=== PATIENT | male | born 1955 | race African-American/Black ===

== ENCOUNTER → 2020-11-07 | Outpatient (CLI) | payer OTHER ==
[2020-11-07 13:38] LABS: Basophils # (auto) 0 10 ^3/uL (0-0.2); Basophils % (auto) 0.5 % (0.0-2.0); Eosinophils # (auto) 0 10 ^3/uL (0-0.8); Hematocrit 37.9 % (41.0-53.0); Hemoglobin 12.4 g/dL (13.5-17.5); Lymphocytes # (auto) 2.3 10 ^3/uL (0.4-5.4); Mean Corpuscular Hemoglobin 31.5 pg (28.0-32.0); Mean Corpuscular Hgb Conc. 32.6 g/dL (32.0-36.0); Mean Corpuscular Volume 96.7 fL (80.0-100.0); Monocytes # (auto) 0.6 10 ^3/uL (0-1.3); Monocytes % (auto) 8.3 % (0.0-12.0); Neutrophils # (auto) 4.4 10 ^3/uL (1.6-8.6); Neutrophils % (auto) 60.2 % (37.0-80.0); Nucleated Red Blood Cells % 0.1 %; Platelet Count (auto) 205 10^3/uL (140-450); Red Blood Cells 3.92 10^6/uL (4.5-5.90); Red Cell Distribution Width 13.2 % (11.8-14.3); White Blood Cell 7.3 10^3/uL (4.4-10.8)
[2020-11-07 13:58] LABS: Urine Bacteria NONE SEEN /hpf (None Seen); Urine Blood Negative /uL (Negative); Urine Hyaline Cast FEW /lpf (0 - 2); Urine Mucus FEW (None Seen); Urine Specific Gravity 1.018 (1.001-1.035); Urine WBC 3 /hpf (0 - 3)
[2020-11-07 14:17] LABS: INR 1.02 (0.9-1.15)
[2020-11-07 14:26] LABS: Albumin 3.8 g/dL (3.4-5.0); Calcium 9.3 mg/dL (8.5-10.1); Potassium 3.6 mmol/L (3.5-5.1); Uric Acid 4.9 mg/dL (3.5-7.2)
[2020-11-07 14:30] LABS: BUN/Creatinine Ratio 11.8; Bilirubin, Total 0.6 mg/dL (0.2-1.0); Total Protein 7.7 g/dL (6.4-8.2)
[2020-11-07 15:13] LABS: Free T4 (Free Thyroxine) 0.89 ng/dL (0.89-1.76); Prostate Specific Antigen 2.72 ng/mL (0.0-4.0)
== END | disposition home or self-care (01) ==
LOC: LAB 13:22
PROVIDERS: ATTEND Internal Medicine
DX: E11.9 Type 2 diabetes mellitus without complications (principal); I10 Essential (primary) hypertension; E78.5 Hyperlipidemia, unspecified
CPT/HCPCS: 36415; 80053; 80061; 81001; 82043; 82607; 83036; 84153; 84439; 84443; 84550; 85025; 85610; 85652

== ENCOUNTER → 2021-01-12 | Outpatient (CLI) | payer OTHER | END | disposition home or self-care (01) | LOC: XYW 11:04 | PROVIDERS: ATTEND Internal Medicine | DX: I10 Essential (primary) hypertension (principal) | CPT/HCPCS: 93306 ==

== ENCOUNTER 2021-02-23 18:02 | Inpatient (IN) | payer OTHER ==
[~2021-02-23] VITALS: Ht 30.5 cm; Wt 99.0 kg
[2021-02-23] MEDS ORDERED: ACETAMINOPHEN 500 MG TAB PO PRN (19:00)
[2021-02-23] MEDS ORDERED: DOCUSATE SOD 100 MG CAP PO PRN (19:00)
[2021-02-23] MEDS ORDERED: IPRATROPIUM BROM 0.5 MG/2.5ML INH SOL NEB PRN (19:00)
[2021-02-23] MEDS ORDERED: SODIUM CHLORIDE 0.9% 1,000 ML IV SCH (19:00)
[2021-02-23] MEDS ORDERED: ONDANSETRON HCL 4 MG/2 ML VIAL IV PRN (19:00)
[2021-02-23] MEDS ORDERED: ALBUTEROL SULF 2.5 MG/0.5ML(0.5%) NEB SOLN NEB PRN (19:00)
[2021-02-23] MEDS ORDERED: NITROGLYCERIN 0.4 MG SL TAB SL PRN (19:00)
[2021-02-23] MEDS ORDERED: HYDROcodone-ACET 5/325MG TAB PO PRN (19:00)
[2021-02-23 22:00] VITALS: BP 145/96
[2021-02-23] MEDS ORDERED: ALLO100T PO (23:33)
[2021-02-23] MEDS ORDERED: TRAZ100T3 PO (23:33)
[2021-02-23] MEDS ORDERED: ROSU20TA14 PO (23:33)
[2021-02-23] MEDS ORDERED: NIFE90TA49 PO (23:33)
[2021-02-23] MEDS ORDERED: CITA10TA70 PO (23:33)
[2021-02-23] MEDS ORDERED: LOSA-39 PO (23:33)
[2021-02-23] MEDS ORDERED: CICL8SOL3 TOP (23:33)
[2021-02-23] MEDS ORDERED: LORA-622 PO (23:33)
[2021-02-23 23:38] VITALS: BP 145/96
[2021-02-24] MEDS ORDERED: PNEUMOCOCCAL VACC POLYS 25 MCG/0.5 ML VIAL IM ONE (00:15)
[2021-02-24] MEDS: MORPHINE SULFATE INJECTION 2 MG/ML SYRG IV PRN ×2 (00:34→18:02)
[2021-02-24] MEDS ORDERED: dilTIAZem 25 MG/5 ML VIAL IV ONE (01:15)
[2021-02-24 05:00] VITALS: BP 146/98
[2021-02-24] MEDS ORDERED: MORPHINE SULFATE INJECTION 2 MG/ML SYRG IV PRN (05:30)
[2021-02-24] MEDS ORDERED: NITROGLYCERIN 0.4 MG SL TAB SL PRN (05:30)
[2021-02-24 05:35] LABS: Basophils # (auto) 0 10 ^3/uL (0-0.2); Basophils % (auto) 0.3 % (0.0-2.0); Eosinophils # (auto) 0 10 ^3/uL (0-0.8); Hematocrit 42.2 % (41.0-53.0); Hemoglobin 14.2 g/dL (13.5-17.5); Lymphocytes # (auto) 3.3 10 ^3/uL (0.4-5.4); Lymphocytes % (auto) 36.4 % (10.0-50.0); Mean Corpuscular Hemoglobin 31.5 pg (28.0-32.0); Mean Corpuscular Hgb Conc. 33.6 g/dL (32.0-36.0); Mean Corpuscular Volume 93.7 fL (80.0-100.0); Monocytes # (auto) 1.1 10 ^3/uL (0-1.3); Monocytes % (auto) 11.8 % (0.0-12.0); Neutrophils # (auto) 4.7 10 ^3/uL (1.6-8.6); Neutrophils % (auto) 51.5 % (37.0-80.0); Red Blood Cells 4.51 10^6/uL (4.5-5.90); Red Cell Distribution Width 12.6 % (11.8-14.3); White Blood Cell 9.1 10^3/uL (4.4-10.8)
[2021-02-24 05:45] LABS: INR 1.05 (0.9-1.15); Partial Thromboplastin Time 27.6 sec (23.6-33.0)
[2021-02-24 06:08] LABS: Albumin 3.8 g/dL (3.4-5.0); BUN/Creatinine Ratio 9.7; Calcium 9.1 mg/dL (8.5-10.1)
[2021-02-24 06:11] LABS: Bilirubin, Total 1.7 mg/dL (0.2-1.0)
[2021-02-24 09:00] VITALS: BP 157/96
[2021-02-24 09:39] LABS: Potassium 2.8 mmol/L (3.5-5.1)
[2021-02-24] MEDS ORDERED: POTASSIUM CHLORIDE 40 MEQ, LIDOCAINE 1% (LOCAL ANESTH.) 4 ML in SODIUM CHL 0.9% 250 ML IV ONE (10:15)
[2021-02-24] MEDS ORDERED: POTASSIUM CHL 20 Meq TABLET PO ONE (10:15)
[2021-02-24] MEDS: PANTOPRAZOLE 40 MG TAB PO SCH (10:16)
[2021-02-24] MEDS: dilTIAZem 120MG ER CAP PO SCH (10:18)
[2021-02-24 10:53] LABS: Urine Bacteria NONE SEEN /hpf (None Seen); Urine Blood TRACE /uL (Negative); Urine Mucus FEW (None Seen); Urine Specific Gravity 1.012 (1.001-1.035); Urine WBC 1 /hpf (0 - 3)
[2021-02-24 11:07] VITALS: BP 157/96
[2021-02-24 12:30] VITALS: BP 157/95
[2021-02-24 17:00] VITALS: BP 152/98
[2021-02-24] MEDS: ENOXAPARIN SOD 100 MG/1 ML SYRINGE SC SCH (20:30)
[2021-02-24] MEDS: ATORVASTATIN 20 MG TAB PO SCH (21:21)
[2021-02-24 22:00] VITALS: BP 162/89
[2021-02-24] MEDS: hydrALAZINE HCL 20 MG/ML VL IV PRN (23:58)
[2021-02-25] VITALS (7 sets, daily range): BP systolic 135–158; BP diastolic 78–103
[2021-02-25] MEDS: ENOXAPARIN SOD 100 MG/1 ML SYRINGE SC SCH ×2 (08:22→23:03)
[2021-02-25] MEDS: PANTOPRAZOLE 40 MG TAB PO SCH (09:03)
[2021-02-25] MEDS: dilTIAZem 120MG ER CAP PO SCH (09:05)
[2021-02-25 10:44] LABS: BUN/Creatinine Ratio 11.3; Calcium 9.6 mg/dL (8.5-10.1)
[2021-02-25] MEDS ORDERED: SPIRONOLACTONE 25 MG TAB PO ONE (11:30)
[2021-02-25] MEDS: MORPHINE SULFATE INJECTION 2 MG/ML SYRG IV PRN (18:50)
[2021-02-25] MEDS: hydrALAZINE HCL 20 MG/ML VL IV PRN (18:53)
[2021-02-25] MEDS: BACITRACIN TOP OINT 1 UD PKG TOP SCH (23:03)
[2021-02-25] MEDS: ATORVASTATIN 20 MG TAB PO SCH (23:03)
[2021-02-26] VITALS (7 sets, daily range): BP systolic 130–162; BP diastolic 78–82
[2021-02-26] MEDS: hydrALAZINE HCL 20 MG/ML VL IV PRN (05:26)
[2021-02-26 05:39] LABS: BUN/Creatinine Ratio 12.8; Basophils # (auto) 0 10 ^3/uL (0-0.2); Basophils % (auto) 0.4 % (0.0-2.0); Calcium 9.5 mg/dL (8.5-10.1); Eosinophils # (auto) 0 10 ^3/uL (0-0.8); Hematocrit 40.2 % (41.0-53.0); Hemoglobin 13.2 g/dL (13.5-17.5); Lymphocytes # (auto) 1.9 10 ^3/uL (0.4-5.4); Mean Corpuscular Hemoglobin 31.3 pg (28.0-32.0); Mean Corpuscular Hgb Conc. 32.9 g/dL (32.0-36.0); Mean Corpuscular Volume 95.2 fL (80.0-100.0); Monocytes # (auto) 0.7 10 ^3/uL (0-1.3); Monocytes % (auto) 10.3 % (0.0-12.0); Neutrophils # (auto) 4.4 10 ^3/uL (1.6-8.6); Neutrophils % (auto) 62.3 % (37.0-80.0); Red Blood Cells 4.22 10^6/uL (4.5-5.90); Red Cell Distribution Width 12.7 % (11.8-14.3)
[2021-02-26] MEDS: ENOXAPARIN SOD 100 MG/1 ML SYRINGE SC SCH ×2 (09:50→20:43)
[2021-02-26] MEDS: dilTIAZem 120MG ER CAP PO SCH (09:51)
[2021-02-26] MEDS: PANTOPRAZOLE 40 MG TAB PO SCH (09:52)
[2021-02-26] MEDS: BACITRACIN TOP OINT 1 UD PKG TOP SCH ×2 (09:58→21:58)
[2021-02-26] MEDS: POTASSIUM CHL 20MEQ/100ML 100 ML IV SCH ×2 (11:00→14:00)
[2021-02-26] MEDS ORDERED: NEOMYCIN-BACITRACIN-POLYM UNITDOSE PKG TOP OINT TOP ONE (14:15)
[2021-02-26] MEDS: MORPHINE SULFATE INJECTION 2 MG/ML SYRG IV PRN (14:37)
[2021-02-26] MEDS: POTASSIUM CHL 20 Meq TABLET PO SCH (21:58)
[2021-02-26] MEDS: ATORVASTATIN 20 MG TAB PO SCH (21:58)
[2021-02-27 05:00] VITALS: BP 148/88
[2021-02-27 06:42] LABS: Basophils # (auto) 0 10 ^3/uL (0-0.2); Basophils % (auto) 0.3 % (0.0-2.0); Eosinophils # (auto) 0 10 ^3/uL (0-0.8); Hematocrit 38.5 % (41.0-53.0); Hemoglobin 12.9 g/dL (13.5-17.5); Lymphocytes % (auto) 39.1 % (10.0-50.0); Mean Corpuscular Hemoglobin 32.2 pg (28.0-32.0); Mean Corpuscular Hgb Conc. 33.4 g/dL (32.0-36.0); Mean Corpuscular Volume 96.2 fL (80.0-100.0); Monocytes # (auto) 0.9 10 ^3/uL (0-1.3); Monocytes % (auto) 11.6 % (0.0-12.0); Neutrophils # (auto) 3.7 10 ^3/uL (1.6-8.6); Nucleated Red Blood Cells % 0.1 %; Red Cell Distribution Width 13.2 % (11.8-14.3); White Blood Cell 7.6 10^3/uL (4.4-10.8)
[2021-02-27 06:54] LABS: INR 1.05 (0.9-1.15); Partial Thromboplastin Time 29.8 sec (23.6-33.0)
[2021-02-27 06:57] LABS: Albumin 3.7 g/dL (3.4-5.0); Calcium 9.2 mg/dL (8.5-10.1); Magnesium 2.2 mg/dL (1.6-2.6); Potassium 3.3 mmol/L (3.5-5.1)
[2021-02-27 07:02] LABS: BUN/Creatinine Ratio 13.5; Phosphorus 3.2 mg/dL (2.5-4.90); Total Protein 7.6 g/dL (6.4-8.2)
[2021-02-27] MEDS ORDERED: ADENOSINE 83 MG in GIVE UN-DILUTED 0 ML IV STA (07:17)
[2021-02-27] MEDS: POTASSIUM CHL 20 Meq TABLET PO SCH (08:44)
[2021-02-27] MEDS: ENOXAPARIN SOD 100 MG/1 ML SYRINGE SC SCH (08:44)
[2021-02-27] MEDS: PANTOPRAZOLE 40 MG TAB PO SCH (08:45)
[2021-02-27] MEDS: dilTIAZem 120MG ER CAP PO SCH (08:45)
[2021-02-27 08:58] VITALS: BP 143/75
[2021-02-27 09:00] VITALS: BP 139/75
[2021-02-27] MEDS ORDERED: NEOMYCIN-BACITRACIN-POLYM UNITDOSE PKG TOP OINT TOP SCH (10:00)
[2021-02-27 13:00] VITALS: BP 137/66
[2021-02-27 13:40] VITALS: BP 147/84
[2021-02-27] MEDS: BACITRACIN TOP OINT 1 UD PKG TOP SCH (16:02)
== END 2021-02-27 16:16 | disposition home or self-care (01) | DRG 309 ==
LOC: CENTRAL 23:00
PROVIDERS: ADMIT Nurse Practitioner Acute Care; ATTEND Internal Medicine
DX: I48.0 Paroxysmal atrial fibrillation (principal); D68.69 Other thrombophilia; R55 Syncope and collapse; I10 Essential (primary) hypertension; E66.01 Morbid (severe) obesity due to excess calories; E78.5 Hyperlipidemia, unspecified; E11.9 Type 2 diabetes mellitus without complications; E87.6 Hypokalemia; M54.2 Cervicalgia; S00.83XA Contusion of other part of head, initial encounter; W18.39XA Other fall on same level, initial encounter; M10.9 Gout, unspecified; Z79.01 Long term (current) use of anticoagulants; Z80.0 Family history of malignant neoplasm of digestive organs; Z80.3 Family history of malignant neoplasm of breast; Z68.25 Body mass index [BMI] 25.0-25.9, adult; Z88.6 Allergy status to analgesic agent; Z82.49 Family history of ischemic heart disease and other diseases of the circulatory system; Y93.89 Activity, other specified; Y92.89 Other specified places as the place of occurrence of the external cause; Y99.8 Other external cause status
CPT/HCPCS: 36415; 36600; 71045; 72040; 73110; 78452; 80048; 80053; 81001; 82805; 83735; 84100; 85025; 85610; 85730; 87040; 87081; 87086; 93005; 93017; 93886; G0378; J0153; J2001; J2405; J3480

== ENCOUNTER → 2021-03-10 | Outpatient (CLI) | payer OTHER ==
[~2021-03-10] MED LIST: ALLO100T PO; CICL8SOL3 TOP; CITA10TA70 PO; LORA-622 PO; LOSA-39 PO; NIFE90TA49 PO; ROSU20TA14 PO; TRAZ100T3 PO
[2021-03-10 11:11] LABS: Urine Bacteria NONE SEEN /hpf (None Seen); Urine Blood TRACE /uL (Negative); Urine WBC 2 /hpf (0 - 3)
== END | disposition home or self-care (01) ==
LOC: LAB 10:50
PROVIDERS: ATTEND Internal Medicine
DX: I10 Essential (primary) hypertension (principal)
CPT/HCPCS: 81001

== ENCOUNTER 2022-03-17 11:29 | Emergency (ER) | payer OTHER ==
[~2022-03-17] VITALS: Ht 180.3 cm; Wt 100.0 kg
[2022-03-17 12:09] LABS: Basophils # (auto) 0 10 ^3/uL (0-0.2); Basophils % (auto) 0.3 % (0.0-2.0); Eosinophils # (auto) 0 10 ^3/uL (0-0.8); Hematocrit 39.8 % (41.0-53.0); Hemoglobin 12.7 g/dL (13.5-17.5); Lymphocytes # (auto) 1.4 10 ^3/uL (0.4-5.4); Lymphocytes % (auto) 17.8 % (10.0-50.0); Mean Corpuscular Hemoglobin 30.7 pg (28.0-32.0); Monocytes # (auto) 0.7 10 ^3/uL (0-1.3); Monocytes % (auto) 8.9 % (0.0-12.0); Neutrophils # (auto) 5.8 10 ^3/uL (1.6-8.6); Red Blood Cells 4.14 10^6/uL (4.5-5.90); Red Cell Distribution Width 12.9 % (11.8-14.3)
[2022-03-17 12:29] LABS: Calcium 8.7 mg/dL (8.5-10.1); Potassium 3.8 mmol/L (3.5-5.1)
[2022-03-17 12:31] LABS: BUN/Creatinine Ratio 9.2
[2022-03-17 12:34] LABS: Bilirubin, Total 1.1 mg/dL (0.2-1.0); Total Protein 7.5 g/dL (6.4-8.2)
[2022-03-17] MEDS ORDERED: IBU600T PO (14:46)
[2022-03-17 14:55] VITALS: BP 155/82
== END 2022-03-17 14:54 | disposition home or self-care (01) ==
LOC: EDBD 11:29 → ER 11:29
DX: S32.008A Other fracture of unspecified lumbar vertebra, initial encounter for closed fracture (principal); S33.5XXA Sprain of ligaments of lumbar spine, initial encounter; Z88.6 Allergy status to analgesic agent; I10 Essential (primary) hypertension; W19.XXXA Unspecified fall, initial encounter; Y93.89 Activity, other specified; Y92.89 Other specified places as the place of occurrence of the external cause; Y99.8 Other external cause status
CPT/HCPCS: 36415; 72131; 72192; 80053; 84484; 85025

== ENCOUNTER → 2024-05-12 | Outpatient (CLI) | payer OTHER ==
[~2024-05-12] MED LIST changes: +CICL8SOL21 TOP; -CICL8SOL3 TOP; +CITA10TA5 PO; -CITA10TA70 PO; +IBU600T PO; -LOSA-39 PO; +LOSA-535 PO; -NIFE90TA49 PO; +NIFE90TA75 PO; +TRAZ-228 PO; -TRAZ100T3 PO
[2024-05-12 14:53] LABS: Basophils # (auto) 0 10 ^3/uL (0-0.2); Basophils % (auto) 0.4 % (0.0-2.0); Eosinophils # (auto) 0 10 ^3/uL (0-0.8); Eosinophils % (auto) 0.1 % (0.0-7.0); Hematocrit 38.3 % (41.0-53.0); Hemoglobin 12.6 g/dL (13.5-17.5); Lymphocytes # (auto) 2.6 10 ^3/uL (0.4-5.4); Lymphocytes % (auto) 38.5 % (10.0-50.0); Mean Corpuscular Hemoglobin 31.6 pg (28.0-32.0); Mean Corpuscular Hgb Conc. 32.9 g/dL (32.0-36.0); Mean Corpuscular Volume 96.3 fL (80.0-100.0); Monocytes # (auto) 0.7 10 ^3/uL (0-1.3); Monocytes % (auto) 9.8 % (0.0-12.0); Neutrophils # (auto) 3.4 10 ^3/uL (1.6-8.6); Neutrophils % (auto) 51.2 % (37.0-80.0); Nucleated Red Blood Cells % 0.1 %; Platelet Count (auto) 193 10^3/uL (140-450); Red Blood Cells 3.98 10^6/uL (4.5-5.90); Red Cell Distribution Width 12.9 % (11.8-14.3); White Blood Cell 6.6 10^3/uL (4.4-10.8)
[2024-05-12 15:34] LABS: Alanine Aminotransferase 35 U/L (7-40); Anion Gap 9 (5-15); Aspartate Aminotransferase 28 U/L (13-40); BUN/Creatinine Ratio 12.8 (10.0-20.0); Blood Urea Nitrogen 16 mg/dL (9-23); Calcium 10.3 mg/dL (8.7-10.4); Carbon Dioxide 28 mmol/L (20-31); Chloride 106 mmol/L (98-107); Glucose 97 mg/dL (74-106); LDL Cholesterol 41 mg/dL (< 100); Potassium 3.8 mmol/L (3.5-5.1); Sodium 143 mmol/L (136-145); Triglycerides 54 mg/dL (< 150)
[2024-05-12 15:35] LABS: Albumin 4.8 g/dL (3.2-4.8); Bilirubin, Total 0.7 mg/dL (0.2-1.0); Cholesterol 161 mg/dL (< 200); Total Protein 7.5 g/dL (5.7-8.2)
[2024-05-12 15:36] LABS: Alkaline Phosphatase 35 U/L (46-116); HDL Cholesterol 99 mg/dL (40-59)
[2024-05-12 15:38] LABS: Free T3 2.9 pg/mL (2.3-4.2)
[2024-05-12 15:39] LABS: Prostate Specific Antigen 5.28 ng/mL (0.0-4.0)
[2024-05-13 08:06] LABS: Estradiol 10.6 pg/mL (7.6-42.6); PSA Free 1.93 ng/mL; Prostate Specific Antigen 6.3 ng/mL (0.0-4.0); Testosterone 310 ng/dL (264-916); Thyroid Peroxidase (TPO) Ab <9 IU/mL (0-34); Thyroxine (T4) 8.7 ug/dL (4.5-12.0)
== END | disposition home or self-care (01) ==
LOC: LAB 14:27
PROVIDERS: ATTEND Urology
DX: Z13.220 Encounter for screening for lipoid disorders (principal); E07.89 Other specified disorders of thyroid; E34.9 Endocrine disorder, unspecified; E29.1 Testicular hypofunction; E53.9 Vitamin B deficiency, unspecified; E55.9 Vitamin D deficiency, unspecified
CPT/HCPCS: 36415; 80053; 80061; 82306; 82607; 82670; 84153; 84154; 84402; 84403; 84436; 84443; 84481; 85025; 86376

== ENCOUNTER → 2024-10-02 | Outpatient (CLI) | payer OTHER ==
[2024-10-02 13:44] LABS: Basophils # (auto) 0 10 ^3/uL (0-0.2); Basophils % (auto) 0.3 % (0.0-2.0); Eosinophils # (auto) 0 10 ^3/uL (0-0.8); Hematocrit 37.2 % (41.0-53.0); Hemoglobin 12.2 g/dL (13.5-17.5); Lymphocytes # (auto) 2.3 10 ^3/uL (0.4-5.4); Lymphocytes % (auto) 35.8 % (10.0-50.0); Mean Corpuscular Hemoglobin 31.1 pg (28.0-32.0); Mean Corpuscular Hgb Conc. 32.9 g/dL (32.0-36.0); Mean Corpuscular Volume 94.5 fL (80.0-100.0); Monocytes # (auto) 0.6 10 ^3/uL (0-1.3); Neutrophils # (auto) 3.4 10 ^3/uL (1.6-8.6); Neutrophils % (auto) 53.9 % (37.0-80.0); Nucleated Red Blood Cells % 0.1 %; Platelet Count (auto) 200 10^3/uL (140-450); Red Blood Cells 3.93 10^6/uL (4.5-5.90); Red Cell Distribution Width 13.3 % (11.8-14.3); White Blood Cell 6.3 10^3/uL (4.4-10.8)
[2024-10-02 14:27] LABS: Alanine Aminotransferase 26 U/L (7-40); Albumin 4.7 g/dL (3.2-4.8); Alkaline Phosphatase 33 U/L (46-116); Anion Gap 7 (5-15); Aspartate Aminotransferase 22 U/L (13-40); BUN/Creatinine Ratio 14.2 (10.0-20.0); Bilirubin, Total 0.7 mg/dL (0.2-1.0); Blood Urea Nitrogen 18 mg/dL (9-23); Carbon Dioxide 29 mmol/L (20-31); Chloride 110 mmol/L (98-107); Glucose 103 mg/dL (74-106); Potassium 4.2 mmol/L (3.5-5.1); Sodium 146 mmol/L (136-145); Total Protein 7.3 g/dL (5.7-8.2)
[2024-10-02 14:30] LABS: Erythrocyte Sedimentation Rate 10 mm/hr (0-20)
== END | disposition home or self-care (01) ==
LOC: LAB 13:26
PROVIDERS: ATTEND Internal Medicine
DX: I10 Essential (primary) hypertension (principal); I48.0 Paroxysmal atrial fibrillation; Z87.39 Personal history of other diseases of the musculoskeletal system and connective tissue
CPT/HCPCS: 36415; 80053; 84550; 85025; 85652

== ENCOUNTER 2025-03-19 08:21 | Day surgery (SDC) | payer OTHER ==
[2025-03-11 14:03] LABS: Urine Protein, UAD Negative (Negative)
[2025-03-11 14:09] LABS: Hematocrit 40.0 % (41.0-53.0); Hemoglobin 13.1 g/dL (13.5-17.5); Mean Corpuscular Hemoglobin 31.6 pg (28.0-32.0); Mean Corpuscular Volume 96.2 fL (80.0-100.0); Nucleated Red Blood Cells % 0.1 %
[2025-03-11 14:23] LABS: INR 1.07 (0.9-1.15); Partial Thromboplastin Time 27.1 SEC (24.5-34.5); Prothrombin Time 11.3 sec (9.3-11.8)
[2025-03-11 14:42] LABS: Alanine Aminotransferase 29 U/L (7-40); Albumin 4.7 g/dL (3.2-4.8); Anion Gap 11 (5-15); BUN/Creatinine Ratio 7.9 (10.0-20.0); Blood Urea Nitrogen 11 mg/dL (9-23); Calcium 9.5 mg/dL (8.7-10.4); Carbon Dioxide 29 mmol/L (20-31); Chloride 105 mmol/L (98-107); Glucose 95 mg/dL (74-106); Potassium 3.9 mmol/L (3.5-5.1); Total Protein 7.6 g/dL (5.7-8.2)
[2025-03-11 14:43] LABS: Bilirubin, Total 1.0 mg/dL (0.2-1.0)
[2025-03-11 15:08] LABS: Alkaline Phosphatase 33 U/L (46-116); Sodium 145 mmol/L (136-145)
[~2025-03-19] VITALS: Ht 177.8 cm; Wt 96.2 kg
[~2025-03-19 08:21] MED LIST changes: -ALLO100T PO; +AMIO200T13 PO; +AML5T PO; +APIX5TAB PO; -CICL8SOL21 TOP; -CITA10TA5 PO; -IBU600T PO; -LORA-622 PO; +METO25TA93 PO; -NIFE90TA75 PO; +TAMS-35 PO; -TRAZ-228 PO
[2025-03-19] MEDS ORDERED: KETAMINE 50mg/ML 1ml syringe IM ONE (08:22)
[2025-03-19] MEDS ORDERED: PROPOFOL 10 MG/ML 20 ML IV ONE ×2 (08:40→09:34)
[2025-03-19] MEDS ORDERED: MIDAZOLAM HCL 2MG/2ML 2ml VIAL (1mg/ml) ONE (08:40)
[2025-03-19 09:38] VITALS: PULSE 79; RESP 30; TEMP 97.4; O2SAT 96
[2025-03-19 09:43] VITALS: O2SAT 96
--- NOTE | 2025-03-19 09:45 | DVHOP2 ---
Operative Report DATE OF OPERATION: 03/19/25 PROCEDURE: Colonoscopy with cold biopsy polypectomy. PREOPERATIVE INDICATION: The patient is a 69 -year-old male undergoing colonoscopy for surveillance with personal history of colon polyps POSTOPERATIVE DIAGNOSES: 1. 2-3 mm benign-appearing ascending colon polyp was seen and removed completely via cold biopsy forceps in a piecemeal fashion 2. Trace internal hemorrhoids otherwise completely normal colonoscopy examination up to the cecum PROCEDURE PERFORMED BY: Daisy Valentine M.D. SCOPE: Olympus videocolonoscope. ASA CLASS: 3 PREOPERATIVE MEDICATIONS: Dr. Dominguez Fisher PROCEDURE IN DETAIL: After obtaining an informed consent, the patient was placed on left lateral decubitus position. He was then sedated with the above medications. A rectal examination was performed that was normal. The colonoscope was then passed through the anus into the rectosigmoid and through the descending, transverse, and ascending colon up to the cecum with visualization of the appendiceal orifice, base of the cecum and the ileocecal valve. The colonoscope was then withdrawn. No masses or colitis were seen. There was no clear-cut diverticular disease. Patient had a 2-3 mm benign-appearing ascending colon polyp that was removed completely in a piecemeal fashion No other polyps or masses were seen. Patient had trace internal hemorrhoids on retroflexion and straight on view The patient tolerated the procedure well without difficulty. WITHDRAWAL TIME: 9 minutes QUALITY OF THE PREP: Morral Bowel Prep score: 9. COMPLICATIONS : None SPECIMENS: Ascending colon polyp DISPOSITION: Stable D/C to home PLAN: 1. Repeat colonoscopy base on biopsy result likely in 3-5 years 2. Resume GI soft diet advance as tolerated 3. Avoid aspirin and NSAIDs for five days 4. Outpatient follow up with me in 2-4 weeks to review results and discuss further management DAISY VALENTINE MD Mar 19, 2025 09:45
[2025-03-19 10:06] VITALS: BP 148/75; PULSE 69; RESP 21
== END 2025-03-19 10:21 | disposition home or self-care (01) ==
LOC: GI 08:21
PROVIDERS: ATTEND Internal Medicine Gastroenterology
DX: Z12.11 Encounter for screening for malignant neoplasm of colon (principal); K64.8 Other hemorrhoids; D12.2 Benign neoplasm of ascending colon; I10 Essential (primary) hypertension; E11.9 Type 2 diabetes mellitus without complications; F32.A Depression, unspecified; I48.91 Unspecified atrial fibrillation; Z79.899 Other long term (current) drug therapy; Z86.0100 Personal history of colon polyps, unspecified; Z79.84 Long term (current) use of oral hypoglycemic drugs
CPT/HCPCS: 36415; 45380; 80053; 81001; 85025; 85610; 85730; 88305; J2250; J2704; J7030

== ENCOUNTER 2025-04-21 13:41 | Outpatient (CLI) | payer OTHER ==
[2025-04-21 14:24] LABS: Chloride 105 mmol/L (98-107); Potassium 4.5 mmol/L (3.5-5.1); Sodium 144 mmol/L (136-145)
[2025-04-21 14:25] LABS: Anion Gap 10 (5-15); Calcium 9.8 mg/dL (8.7-10.4); Carbon Dioxide 29 mmol/L (20-31)
[2025-04-21 14:30] LABS: BUN/Creatinine Ratio 13.9 (10.0-20.0); Blood Urea Nitrogen 19 mg/dL (9-23); Glucose 106 mg/dL (74-106)
[2025-04-21 14:32] LABS: Microalb/Creat Ratio, Urine 3.0
== END 2025-04-21 17:00 | disposition home or self-care (01) ==
LOC: LAB 13:41
PROVIDERS: ATTEND Internal Medicine
DX: E11.9 Type 2 diabetes mellitus without complications (principal)
CPT/HCPCS: 36415; 80048; 82043; 82570